=== PATIENT | male | born 1990 | race Caucasian/White ===

== ENCOUNTER 2021-10-10 09:34 | Emergency (ER) | payer OTHER, SELFPAY ==
[2021-10-10 09:42] VITALS: BP 127/83; PULSE 106; RESP 14; TEMP 36.5; O2SAT 97; BMI 26.9
--- NOTE | 2021-10-10 10:03 | XRR_ITS ---
PROCEDURE INFORMATION: Exam: XR Chest Exam date and time: 10/10/2021 9:21 AM Age: 31 years old Clinical indication: Other: Arrthymia TECHNIQUE: Imaging protocol: XR of the chest. Views: 1 view. COMPARISON: No relevant prior studies available. FINDINGS: Lungs: Unremarkable. No consolidation. Pleural spaces: Unremarkable. No pleural effusion. No pneumothorax. Heart/Mediastinum: Unremarkable. No cardiomegaly. Bones/joints: Unremarkable. XR/XR chest 1V portable [id number] IMPRESSION: No acute findings.
--- NOTE | 2021-10-10 10:13 | ED_ITS ---
HPI - Arrhythmia/Palpitations General: Chief Complaint: Shortness of Breath/Dyspnea Stated Complaint: high heart rate Time Seen by Provider: 10/10/21 09:58 History of Present Illness: 31 yo male with palpitations and rapid heart rate upon waking this morning at 7am. Associated with dizziness, shortness of breath. No nausea or chest pain. He has had palpitations periodically in the past, lasting only a few minutes. No change in his routine over the past 24 hours. Denies drugs or alcohol. No stimulants or [id number]-jmssaug decongestants. No recent weight loss, insomnia, or heat intolerance. Denies signs or symptoms of sleep apnea. Mother was recently diagnosed with A. fib. no hx of arrythmia or sudden in siblings or other family members. Review of Systems General: Reports: 10 or more systems reviewed and unremarkable except in HPI and below Physical Exam Const: COMMON NORMALS: no acute distress, average body habitus, patient oriented x3, healthy appearing, alert and well nourished Eye: COMMON NORMALS: Equal, round and reactive pupils present, EOMs intact bilaterally and conjunctivae normal CONJUNCTIVA: Yes conjunctivae normal PUPIL: Yes Equal, round and reactive pupils present Neck/C-Spine: COMMON NORMALS: full ROM and no lymphadenopathy Resp: COMMON NORMALS: normal respiratory effort Cardio: COMMON NORMALS: regular rate and regular rhythm RATE: regular rate RHYTHM: regular rhythm GI: COMMON NORMALS: Soft to palpation INSPECTION: Yes normal to inspection PALPATION: Yes Soft to palpation, Yes Firmness to palpation present (GI) and No Tenderness to palpation present (GI) Extremity: COMMON NORMALS: normal to inspection and full ROM Neuro: COMMON NORMALS: patient oriented x3 SENSORIUM/ORIENTATION: Yes alert Skin: COMMON NORMALS: no rashes or lesions noted and turgor normal GENERAL SKIN EXAM: no rashes or lesions noted and turgor normal Course Vital Signs: Vital signs: Vital Signs Temperature 97.7 F 10/10/21 10:22 Pulse Rate 82 10/10/21 11:14 Respiratory Rate 16 10/10/21 11:14 Blood Pressure 111/70 10/10/21 11:14 Pulse Oximetry 96 10/10/21 11:14 MDM - Arrhythmia/Palpitations Medical Decision Making Afib w/ RVR on initial EKG.Rates ranging from 120-170. No acute lab abnormalities. IV mag sulfate administered, 1L fluid bolus. Rate control achieved with IV cardizem 25mg IV. Give PO dose to continue BID. Urgent referral to Cardiology. CHADS-VASc score= 0, no anticoagulation indicated. Differential Diagnosis Likely palpitations, sinus tachycardia, artial fibrillation, artial flutter, ventricular premature beats, supraventricular tachycardia, ventricular tachycardia and WPW Medical Records I reviewed the patient's medical records. Lab Data I reviewed the patient's lab results. : 10/10/21 09:56 10/10/21 09:56 Radiology Impressions Chest X-Ray 10/10/21 10:03 IMPRESSION: No acute findings. Laboratory Results WBC 5.3 10^3/uL (4.0-10.0) 10/10/21 09:56 RBC 6.05 10^6/uL (4.1-5.3) H 10/10/21 09:56 Hgb 17.2 g/dL (11.7-16.6) H 10/10/21 09:56 Hct 49.6 % (42.0-52.0) 10/10/21 09:56 MCV 82.0 fl (80-94) 10/10/21 09:56 MCH 28.4 pg (28.0-34.0) 10/10/21 09:56 MCHC 34.7 g/dL (30.0-36.0) 10/10/21 09:56 RDW 12.3 % (12.1-15.1) 10/10/21 09:56 Plt Count 234 10^3/cmm (130-400) 10/10/21 09:56 MPV 11.1 fL (7.4-10.4) H 10/10/21 09:56 Neut % (Auto) 60.6 % 10/10/21 09:56 Lymph % (Auto) 27.1 % 10/10/21 09:56 [place] % (Auto) 7.7 % 10/10/21 09:56 Eos % (Auto) 3.8 % 10/10/21 09:56 Baso % (Auto) 0.6 % 10/10/21 09:56 Neut # (Auto) 3.22 10^3/uL (1.8-7.7) 10/10/21 09:56 Lymph # (Auto) 1.4 10^3/uL (0.8-4.8) 10/10/21 09:56 [place] # (Auto) 0.4 10^3/uL (0.2-0.9) 10/10/21 09:56 Eos # (Auto) 0.2 10^3/uL (0.0-0.8) 10/10/21 09:56 Baso # (Auto) 0.0 10^3/uL (0.0-0.1) 10/10/21 09:56 Nucleated RBC % (auto) 0 % 10/10/21 09:56 Nucleated RBCs # 0.0 /100WBC 10/10/21 09:56 Sodium 138 mmol/L (136-145) 10/10/21 09:56 Potassium 4.2 mmol/L (3.5-5.1) 10/10/21 09:56 Chloride 102 mmol/L (98-107) 10/10/21 09:56 Carbon Dioxide 24 mmol/L (22-29) 10/10/21 09:56 Anion Gap 16.2 (5-19) 10/10/21 09:56 BUN 9 mg/dL (6-20) 10/10/21 09:56 Creatinine 0.9 mg/dL (0.7-1.2) 10/10/21 09:56 GFR Calculation 97.2 mL/min (90-130) 10/10/21 09:56 Glucose 96 mg/dL (65-115) 10/10/21 09:56 Calculated Osmolality 285 mOsm/kg (285-295) 10/10/21 09:56 Calcium 10.1 mg/dL (8.5-10.5) 10/10/21 09:56 Magnesium 2.1 mg/dL (1.7-2.3) 10/10/21 09:56 Total Bilirubin 0.7 mg/dL (0.15-1.2) 10/10/21 09:56 AST 21 U/L (0-40) 10/10/21 09:56 ALT 28 U/L (0-41) 10/10/21 09:56 Alkaline Phosphatase 68 IU/L (40-130) 10/10/21 09:56 Troponin T Gen 5 ng/L 6 ng/L (0-15) 10/10/21 09:56 NT-Pro-B Natriuret Pep 88 pg/mL (0-125) 10/10/21 09:56 Total Protein 7.5 g/dL (6.6-8.7) 10/10/21 09:56 Albumin 4.9 g/dL (3.5-5.2) 10/10/21 09:56 Globulin 2.6 g/dL (1.3-4.6) 10/10/21 09:56 TSH 2.73 uIU/mL (0.27-4.20) 10/10/21 09:56 Free T4 0.94 ng/dL (0.82-1.77) 10/10/21 09:56 Urine Color Straw (Yellow) 10/10/21 10:51 Urine Appearance Clear (CLEAR) 10/10/21 10:51 Urine pH 7 (5-7) 10/10/21 10:51 Ur Specific [place] 1.005 (1.005-1.030) 10/10/21 10:51 Urine Protein Neg (Negative) 10/10/21 10:51 Urine Glucose (UA) Norm (Normal) 10/10/21 10:51 Urine Ketones Negative (Negative) 10/10/21 10:51 Urine Blood Neg (Negative) 10/10/21 10:51 Urine Nitrate Negative (Negative) 10/10/21 10:51 Urine Bilirubin Neg (Negative) 10/10/21 10:51 Urine Urobilinogen Norm mg/dL (Negative) 10/10/21 10:51 Ur Leukocyte Esterase Negative (Negative) 10/10/21 10:51 Urine Opiates Screen Negative ng/mL (Negative) 10/10/21 10:51 Ur Barbiturates Screen Negative ng/mL (Negative) 10/10/21 10:51 Ur Phencyclidine Scrn Negative ng/mL (Negative) 10/10/21 10:51 Ur Amphetamines Screen Negative ng/mL (Negative) 10/10/21 10:51 U Benzodiazepines Scrn Negative ng/mL (Negative) 10/10/21 10:51 Urine Cocaine Screen Negative ng/mL (Negative) 10/10/21 10:51 U Marijuana (THC) Screen Negative ng/mL (Negative) 10/10/21 10:51 EKG Data EKG 1: I personally reviewed and interpreted this EKG as follows: EKG interpretation date: 10/10/21 EKG interpretation time: 10:00 Prior EKG tracings: not available for review Interpretation: Atrial fibrillation, ventricular rate 131, right axis deviation. No ST segment elevation or depression. Other EKG comments: Chest X-Ray 10/10/21 10:03 IMPRESSION: No acute findings. EKG 2: I personally reviewed and interpreted this EKG as follows: EKG interpretation date: 10/10/21 EKG interpretation time: 11:25 Prior EKG tracings: available for review Interpretation: Atrial fibrillation, ventricular rate 69, normal axis, no acute ST segment elevation or depression. No delta waves. Other EKG comments: Chest X-Ray 10/10/21 10:03 IMPRESSION: No acute findings. Discharge Plan Discharge Patient Disposition: Home Clinical Impression: Atrial fibrillation with RVR Condition: Stable Prescriptions: New diltiazem HCl 60 mg capsule,extended release 12 hr 60 mg PO BID Qty: 30 0RF Discharge Orders: Discharge ED (Routine); Ordered 10/10/21 Ordered By: Olya Álvarez Referrals: Allison Marr MD [Physician] - 1-3 days (ER followup; New onset Afib w/RVR) Ozzie Orantes DO [Primary Care Provider] - Discharge Diet: Advance as tolerated Discharge Activity: Increase activity as tolerated Patient Instructions: A-fib (Atrial Fibrillation) (ED) Activity Restrictions/Additional Instructions: You have been referred to cardiology and should receive a call in the next few days to schedule an appointment. Return immediately to the ER if you develop chest pain, difficulty breathing, recurrent palpitations, dizziness, or any other concerning changes. Coding Level of Care Code ED Digital Content Manager for Chg Fwd Exam Comprehensive
[2021-10-10] MEDS: sodium chloride 0.9% 1,000 ML 999 ML IV (10:16)
[2021-10-10 10:21] LABS: Basophils % 0.6 %; Eosinophils # 0.2 10^3/uL (0.0-0.8); Eosinophils % 3.8 %; Hematocrit 49.6 % (42.0-52.0); Hemoglobin 17.2 g/dL (11.7-16.6); Lymphocytes # 1.4 10^3/uL (0.8-4.8); Lymphocytes % 27.1 %; Mean Corpuscular HGB Conc 34.7 g/dL (30.0-36.0); Mean Corpuscular Hemoglobin 28.4 pg (28.0-34.0); Mean Platelet Volume 11.1 fL (7.4-10.4); Monocytes # 0.4 10^3/uL (0.2-0.9); Monocytes % 7.7 %; Neutrophils # 3.22 10^3/uL (1.8-7.7); Neutrophils % 60.6 %; Nucleated Red Blood Cells % 0 %; Platelet Count 234 10^3/cmm (130-400); Red Blood Count 6.05 10^6/uL (4.1-5.3); Red Cell Distribution Width 12.3 % (12.1-15.1); White Blood Count 5.3 10^3/uL (4.0-10.0)
[2021-10-10 10:22] VITALS: BP 127/83; PULSE 106; RESP 14; TEMP 36.5; O2SAT 97
[2021-10-10 10:46] LABS: Troponin T (5th) Once 6 ng/L (0-15)
--- NOTE | 2021-10-10 10:51 | ECG_ITS ---
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 Measurements Intervals [place] Rate: 131 P: CA: QRS: 159 QRSD: 90 T: 169 QT: 295 QTc: 435 Interpretive Statements ATRIAL FIBRILLATION WITH RAPID VENTRICULAR RESPONSE RIGHT AXIS DEVIATION [QRS AXIS > 100] No previous ECG available for comparison Electronically Signed On 10-10-2021 17:27:53 CDT by Allison Marr M.D. [email or web address] [facility] [email or web address].[email or web address]/[id number] f
[2021-10-10 10:54] VITALS: PULSE 141; RESP 16; O2SAT 97
[2021-10-10 11:10] LABS: Add Urine Microscopic? NO; Charge for UA Resulting for Rev
--- NOTE | 2021-10-10 11:11 | ECG_ITS ---
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 Measurements Intervals [place] Rate: 69 P: SD: QRS: 58 QRSD: 87 T: 30 QT: 370 QTc: 399 Interpretive Statements ATRIAL FIBRILLATION ABNORMAL RHYTHM ECG Compared to ECG 10/10/2021 09:55:32 Right-axis deviation no longer present Electronically Signed On 10-10-2021 17:29:21 CDT by Allison Marr M.D. [id number]
[2021-10-10 11:14] VITALS: BP 111/70; PULSE 82; RESP 16; O2SAT 96
[2021-10-10 11:26] LABS: Bilirubin Urine Neg (Negative); Blood Urine Neg (Negative); Glucose Urine UA Norm (Normal); Ketones Urine Negative (Negative); Leukocyte Esterase Urine Negative (Negative); Nitrate Urine Negative (Negative); Protein Urine Neg (Negative); Specific Gravity, Urine 1.005 (1.005-1.030); Urine Appearance Clear (CLEAR); Urine Color Straw (Yellow); Urobilinogen Urine Norm (Negative); pH Urine 7 (5-7)
[2021-10-10 11:30] LABS: Amphetamines Screen Urine Negative (Negative); Barbiturates Screen Urine Negative (Negative); Benzodiazepines Screen Urine Negative (Negative); Cocaine Screen Urine Negative (Negative); Opiate Screen Urine Negative (Negative); PCP Screen Urine Negative (Negative); THC Screen Urine Negative (Negative)
[2021-10-10 11:32] LABS: Alanine Aminotransferase 28 U/L (0-41); Albumin Level 4.9 g/dL (3.5-5.2); Alkaline Phosphatase 68 IU/L (40-130); Anion Gap 16.2 (5-19); Aspartate Amino Transferase 21 U/L (0-40); Blood Urea Nitrogen 9 mg/dL (6-20); Calcium 10.1 mg/dL (8.5-10.5); Carbon Dioxide 24 mmol/L (22-29); Chloride 102 mmol/L (98-107); Free T4 Free Thyroxine 0.94 ng/dL (0.82-1.77); Globulin 2.6 g/dL (1.3-4.6); Glomerular Filtration Rate 97.2 mL/min (90-130); Glucose 96 mg/dL (65-115); Magnesium 2.1 mg/dL (1.7-2.3); NT Pro B Type Natriuretic Pept 88 pg/mL (0-125); Osmolality Calculated 285 mOsm/kg (285-295); Potassium 4.2 mmol/L (3.5-5.1); Sodium 138 mmol/L (136-145); Thyroid Stimulating Hormone 2.73 uIU/mL (0.27-4.20); Total Bilirubin 0.7 mg/dL (0.15-1.2); Total Protein 7.5 g/dL (6.6-8.7)
[2021-10-10] MEDS: dilTIAZem 60 mg Tablet PO (12:52)
[2021-10-10 13:04] VITALS: BP 121/86; PULSE 101; O2SAT 98
== END 2021-10-10 13:06 | disposition home or self-care (01) ==
PROVIDERS: Emergency Provider Family Medicine; PCP Family Medicine
DX: I48.20 Chronic atrial fibrillation, unspecified (principal)
CPT/HCPCS: 71045; 80053; 80306; 81003; 83735; 83880; 84439; 84443; 84484; 85025; 93005; 96365; 96375; 96376; 99284; J3475; J3490; J7030

== ENCOUNTER 2021-10-19 13:00 | Outpatient (CLI) | payer OTHER, SELFPAY | END 2021-10-19 13:01 | disposition home or self-care (01) | LOC: SLEEP 10-20 11:24 | PROVIDERS: PCP Family Medicine; Visit Provider Family Medicine | DX: G47.33 Obstructive sleep apnea (adult) (pediatric) (principal); I48.91 Unspecified atrial fibrillation | CPT/HCPCS: G0399 ==

== ENCOUNTER 2021-11-02 13:18 | Outpatient (CLI) | payer OTHER, SELFPAY ==
--- NOTE | 2021-11-02 13:25 | USCV_ITS ---
Winston Cronin Age: 31 Gender: M : 1990 Exam Date: 11/02/2021 13:43 Ordering Phys: Ozzie Orantes DO Technologist: Gabriella Lockhart [place] [facility] [place]: A FIB BP: 110 / 70 HR: 58 Rhythm: Sinus Technical Quality: Adequate MEASUREMENTS (Male / Female) Normal Values 2D ECHO LV Diastolic Diameter PLAX 5.2 cm 4.2 - 5.9 / 3.9 - 5.3 cm LV Systolic Diameter PLAX 2.6 cm LV Chamber Size 3.5 cm IVS Diastolic Thickness 1.0 cm 0.6 - 1.0 / 0.6 - 0.9 cm IVS Systolic Thickness 1.5 cm LVPW Diastolic Thickness 1.0 cm 0.6 - 1.0 / 0.6 - 0.9 cm LVPW Systolic Thickness 1.7 cm RV Chamber Size 2.9 cm LVOT Diameter 2.0 cm LV Ejection Fraction 2D Teich 81.1 % LV Ejection Fraction MOD 2C 65.0 % LV Ejection Fraction 2C AL 66.7 % LA Diameter 3.5 cm LA Width 3.9 cm LA Height 3.6 cm RA Width 2.8 cm RA Height 3.5 cm Aorta at Sinotubular Diameter 2.8 cm M-MODE Aortic Annulus Diameter 3.6 cm LA Ao Ratio MM 1.1 MV E Point Septal Separation 0.3 cm DOPPLER AV Peak Velocity 124.0 cm/s LVOT Peak Velocity 104.0 cm/s AV Area Cont Eq vti 2.2 cm squared AV Area Cont Eq pk 2.7 cm squared MV Area PHT 4.2 cm squared Mitral E to A Ratio 1.7 MV E' Velocity 43.5 cm/s Mitral E to MV E' Ratio 5.3 Mitral E to LV E' Lateral Ratio 4.5 Mitral E to LV E' Septal Ratio 6.5 TR Peak Velocity 232.2 cm/s TR Peak Gradient 21.6 mmHg TR Mean Velocity 158.2 cm/s TR Mean Gradient 11.5 mmHg TR Velocity Time Integral 59.9 cm TV Peak E Velocity 86.0 cm/s Right Atrial Pressure 3.0 mmHg Pulmonary Artery Systolic Pressu 24.6 mmHg PV Peak Velocity 63.0 cm/s RV Acceleration Time 0.2 s RV Ejection Time 0.4 s RV AcT/ET 0.4 FINDINGS Left Ventricle Normal left ventricular size and systolic function, EF 68 %. No regional wall motion abnormalities. Right Ventricle The right ventricle is normal in size and function. Right Atrium The right atrium is normal in size. Left Atrium The left atrium is normal in size. Mitral Valve No gross abnormalities noted . Aortic Valve No gross abnormalities noted . Tricuspid Valve Trace tricuspid valve regurgitation. Pulmonic Valve No gross abnormalities noted . Pericardium Normal pericardium without effusion. Aorta Normal ascending aorta dimension. CONCLUSIONS Normal left ventricular size and systolic function, EF 68 %. No regional wall motion abnormalities. Trace tricuspid valve regurgitation. Estimated pulmonary artery peak systolic pressure 25 mmHg There is no pericardial effusion. There are no intracardiac masses. No previous study is available for comparison. Dr Allison Marr MD FACC (Electronically Signed) Final Date: 02 November 2021 23:56 S
== END 2021-11-02 13:19 | disposition home or self-care (01) ==
PROVIDERS: PCP Family Medicine; Visit Provider Family Medicine
DX: I48.91 Unspecified atrial fibrillation (principal); I07.1 Rheumatic tricuspid insufficiency
CPT/HCPCS: 93306

== ENCOUNTER 2022-01-31 20:00 | Outpatient (CLI) | payer OTHER, SELFPAY | END 2022-01-31 20:01 | disposition home or self-care (01) | LOC: SLEEP 02-01 08:19 | PROVIDERS: PCP Family Medicine; Visit Provider Internal Medicine Cardiovascular Disease | DX: R40.0 Somnolence (principal) | CPT/HCPCS: 95810 ==

== ENCOUNTER 2022-03-04 11:18 | Outpatient (CLI) | payer OTHER, SELFPAY ==
--- NOTE | 2022-03-04 | ECG_ITS ---
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 Interpretive Statements NAME OF STUDY: TREADMILL STRESS TEST INDICATION: afib PROCEDURE: At the baseline, the patient's blood pressure was with a heart rate of. The baseline electrocardiogram showed normal sinus rhythm with nonspecific T changes. The patient exercised for 9 minutes and 24 seconds on a standard Nicolas protocol. Patient attained a maximum heart rate of 184 beats per minute(98% of the maximum predicted heart rate) with a blood pressure at the peak exercise of 163/74 mm Hg. The EKG at the peak exercise revealed no significant changes. Patient did not have any chest pain or any significant cardiac arrhythmias with the exercise During the recovery phase, there were no new changes. Blood pressure at the end of the recovery phase was 127/81 mm Hg with a heart rate of 100 per minute. CONCLUSION: 1. No significant EKG changes with the treadmill exercise 2. No exercise-induced chest pain or cardiac arrhythmia 3. Good exercise tolerance, attained a maximum of 13.5 METs Electronically Signed On 03-11-2022 15:47:39 CDT by Allison Marr M.D. [id number]
[2022-03-04 11:38] VITALS: BMI 26.9
[2022-03-04 12:14] VITALS: BP 127/81; PULSE 97
== END 2022-03-04 11:19 | disposition home or self-care (01) ==
PROVIDERS: PCP Family Medicine; Visit Provider Internal Medicine Cardiovascular Disease
DX: I48.91 Unspecified atrial fibrillation (principal)
CPT/HCPCS: 93017